=== PATIENT | female | born 1975 | race Caucasian/White ===

== ENCOUNTER 2023-11-07 11:45 | Emergency (ER) | payer BC ==
[~2023-11-07] VITALS: Ht 175.3 cm; Wt 74.8 kg
[2023-11-07 12:16] VITALS: BP 117/78; PULSE 85; RESP 14; TEMP 97.1; O2SAT 100
[2023-11-07 13:49] LABS: BASOPHILS # (AUTO) 0.1 K/uL (0.00-0.22); BASOPHILS % (AUTO) 0.7 % (0.0-2.0); EOSINOPHILS # (AUTO) 0.1 K/uL (0-0.4); EOSINOPHILS % (AUTO) 0.8 % (0.0-4.0); HEMATOCRIT 38.6 % (36-48); HEMOGLOBIN 13.1 g/dL (12.0-16.0); LYMPHOCYTES # (AUTO) 2.3 K/uL (2.5-16.5); LYMPHOCYTES % (AUTO) 27.8 % (20.5-51.1); MEAN CORPUSCULAR HEMOGLOBIN 30 pg (27-31); MEAN CORPUSCULAR HGB CONC 34 g/dL (33-37); MEAN CORPUSCULAR VOLUME 89.2 fL (80-94); MONOCYTES # (AUTO) 0.5 K/uL (0.8-1.0); MONOCYTES % (AUTO) 6.4 % (1.7-9.3); NEUTROPHILS # (AUTO) 5.4 K/uL (1.8-7.7); NEUTROPHILS % (AUTO) 64.3 % (42.2-75.2); PLATELET COUNT (AUTO) 278 K/uL (140-450); RED BLOOD CELL COUNT(AUTO) 4.33 MIL/uL (4.20-5.40); RED CELL DISTRIBUTION WIDTH 13.6 % (11.6-13.7); WHITE BLOOD COUNT (AUTO) 8.4 K/uL (4.8-10.8)
[2023-11-07 13:55] LABS: ANION GAP 10.4 (8-16); CALCIUM 8.3 mg/dL (8.5-10.1); CARBON DIOXIDE 26.4 mmol/L (21-32); CREATININE 0.7 mg/dL (0.6-1.3); POTASSIUM 3.8 mmol/L (3.5-5.1)
[2023-11-07] MEDS ORDERED: ONDANSETRON 4 MG ODT PO ONE (15:25)
[2023-11-07] MEDS ORDERED: ONDANSETRON 4 MG/2 ML VIAL IVP ONE (16:10)
[2023-11-07 16:57] VITALS: BP 134/68; PULSE 84; RESP 20; TEMP 98.2; O2SAT 98
== END 2023-11-07 16:42 | disposition home or self-care (01) ==
LOC: MED 11:45
DX: R22.0 Localized swelling, mass and lump, head (principal); Z79.899 Other long term (current) drug therapy
CPT/HCPCS: 36415; 70486; 70491; 80048; 85025; 96374; 99285; J2405; Q9967